=== PATIENT | female | born 1960 | race Two or more races ===

== ENCOUNTER 2022-04-12 10:00 | Outpatient (CLI) | payer MEDICARE | END 2022-04-12 23:59 | disposition home or self-care (01) | LOC: WOU 10:00 | PROVIDERS: ATTEND Podiatrist Foot & Ankle Surgery | DX: L85.3 Xerosis cutis (principal); Z86.73 Personal history of transient ischemic attack (TIA), and cerebral infarction without residual deficits; Z79.82 Long term (current) use of aspirin | CPT/HCPCS: G0463 ==